=== PATIENT | male | born 1970 | race American Indian/Alaskan Native ===

== ENCOUNTER 2018-11-12 10:30 | Day surgery (SDC) | payer OTHER ==
[2018-11-12] MEDS ORDERED: HEPARIN/NS 5000 UNIT/500ML(CATH LAB) 1,000 ML IR ONE (14:02)
[2018-11-12] MEDS ORDERED: VERSED ONE (14:03)
[2018-11-12] MEDS ORDERED: SUBLIMAZE ONE (14:03)
[2018-11-12] MEDS ORDERED: NACL 0.9% 500 ML 500 ML ONE (14:16)
[2018-11-12] MEDS: XYLOCAINE 2% INFILTRATI ONE ×3 (14:52→15:27)
--- NOTE | 2018-11-12 16:09 | Short Stay Summary ---
Short Stay Documentation Date of service: 11/12/18 Narrative H&P: See H&P - History H&P: obtained from office - Allergies and Medications Current Medications: Allergies No Known Allergies Allergy (Unverified 11/12/18 10:30) Home Medications Medication Instructions Recorded Confirmed Last Taken Type Carvedilol [Coreg] 12.5 mg PO BID 11/12/18 11/12/18 11/11/18 History 12.5mg Ferric Citrate (Nf) [Auryxia] 1 tab PO AC 11/12/18 11/12/18 11/11/18 History 1 Hydralazine HCl 50 mg PO BID 11/12/18 11/12/18 11/11/18 History 50mg cloNIDine [Catapres] 0.2 mg PO BID 11/12/18 11/12/18 11/11/18 History 0.2mg - Brief post op/procedure progress note Date of procedure: 11/12/18 Pre-op diagnosis: Complications of Dialysis Access Post-op diagnosis: same Procedure: 1. Access Right Arm AV Fistula with 6 [place] Sheath Arterial 2. Access Right Arm AV Fistula with 7 [place] Sheath Venous 3. Fistulagram with Central Venogram 4. Catheter in Right Radial Artery 5. Angioplasty of Right Arm AV Fistula with 6 x 80 EverCross Balloon 6. Radiologic Supervision with Interpretation Anesthesia: local Surgeon: LISA RUBIN Estimated blood loss: minimal Pathology: none Condition: stable - Disposition Condition at discharge: Good Disposition: [id number]-01 TO HOME OR SELFCARE Short Stay Discharge Plan Activity: other (okay to use fistula for dialysis) Wound: other (remove sutures by pulling the longer of the 2 strings) Follow up with: LISA RUBIN MD [Staff Physician] - 7 Days BLAYNE DEVI DO [Other] - 14 Days Forms: AVG Arteriogram D/CInstruction Prescriptions: HYDROcodone/APAP 7.5-325 [[place] 7.5/325] 1 each PO Q6HR PRN #30 tablet PRN Reason: Pain
[2018-11-12 16:13] VITALS: BP 171/102
--- NOTE | 2018-11-12 16:24 | Operative Report ---
Operative Report Operative Report: Date of Procedure: 11/12/2018 Pre-operative Diagnosis: Complications of Dialysis Access Post-operative Diagnosis: Same Procedure(s): 1. Access Right Arm AV Fistula with 6 [place] Sheath Arterial 2. Access Right Arm AV Fistula with 7 [place] Sheath Venous 3. Fistulagram with Central Venogram 4. Catheter in Right Radial Artery 5. Angioplasty of Right Arm AV Fistula with 6 x 80 EverCross Balloon 6. Radiologic Supervision with Interpretation Surgeon: Jeancarlos Orta M.D. Nuclear Technologist: None Anesthesia: 1% Lidocaine Plain EBL: Minimal Counts: Correct Complications: None Condition: Stable Specimen: None Indication: The patient is a 47-year-old male with history of end-stage renal disease who is on hemodialysis through a right arm Cathi fistula. He was sent to the office with a complaint of poor clearance. Physical exam reveals a diminished thrill in the fistula. He is in need of a diagnostic fistulogram with possible intervention. He was given the risk, benefits, and alternative procedures and consented to the procedure. Angiogram Findings: The diagnostic fistulogram revealed there was approximately 90% stenosis of the arterial inflow of the fistula. There were several additional areas of stenosis in the cannulation area of the fistula range of 50-75%. The cephalic vein in the upper arm was occluded and the basilic vein was the outflow. There was an area of approximately 60% stenosis in the median cubital vein. The central venous system was patent without flow-limiting stenosis. After intervention there was less than 15% residual stenosis. Description of Procedure: The patient was brought to the labeling associate and laid in supine position. His right arm was prepped and draped in normal sterile fashion. 1% lidocaine was used to anesthetize the skin overlying the fistula in the mid forearm and micropuncture technique was used to access the fistula towards the arterial limb flow. A 6 [place] sheath was then placed by Seldinger technique. The diagnostic fistulogram with central venogram was performed with the previously described findings. I advanced a 0.035 Glidewire and vertebral catheter into the proximal radial artery and performed an arteriogram revealing there is a stenosis within the arterial inflow. I performed angioplasty with a 6 x 80 EverCross Balloon reducing the majority of the areas to less than 15% stenosis however the area with 90% stenosis had significant recoil and required angioplasty with a 6 x 40 [place] Balloon which resulted in less than 10% residual stenosis. All areas within the fistula including the cannulation site were able to be treated through this access and reduced to less than 15% residual stenosis however the area of 60% stenosis in the median cubital vein was just beyond the sheath so I used lidocaine to anesthetize the skin overlying the fistula and use micropuncture technique to access the fistula towards the venous outflow. I advanced a 7 [place] sheath into the fistula by Seldinger technique and then advanced a 0.035 Bentson wire into the fistula and used the 6 x 80 EverCross Balloon to perform angioplasty with a result of approximately 15% residual stenosis. I then removed all the balloon and both wires and then used 2-0 Ethilon in a slipknot fashion to close both entry sites after removing the sheath. Sterile dressings were then applied to the entry sites and the patient was transported to the recovery area in stable condition.
== END 2018-11-12 16:32 | disposition home or self-care (01) ==
LOC: CATHLABREC 10:30
PROVIDERS: ATTEND Surgery Vascular Surgery
DX: T82.590A Other mechanical complication of surgically created arteriovenous fistula, initial encounter (principal); I12.0 Hypertensive chronic kidney disease with stage 5 chronic kidney disease or end stage renal disease; N18.6 End stage renal disease; E11.22 Type 2 diabetes mellitus with diabetic chronic kidney disease; E11.42 Type 2 diabetes mellitus with diabetic polyneuropathy; E78.5 Hyperlipidemia, unspecified; G62.9 Polyneuropathy, unspecified; Z90.49 Acquired absence of other specified parts of digestive tract; Z87.440 Personal history of urinary (tract) infections; Z98.890 Other specified postprocedural states; Z79.899 Other long term (current) drug therapy
CPT/HCPCS: 36415; 36902; 82962; 84132; C1725; C1769; C1894; J1644; J7040; J2250; J3010; Q9967